=== PATIENT | male | born 1960 | race Caucasian/White ===

== ENCOUNTER 2024-08-02 21:07 | Inpatient (IN) | payer OTHER ==
[2024-08-02 21:43] VITALS: BMI 23.3
[2024-08-02] MEDS ORDERED: MAG HYDROX/AL HYDROX/SIMETH 30 ML UNIT-DOSE CUP PO PRN (22:20)
[2024-08-02] MEDS ORDERED: BISMUTH SUBSALICYLATE 524 MG/30 ML PO PRN (22:20)
[2024-08-02] MEDS ORDERED: DICYCLOMINE HCL 10 MG CAPSULE PO PRN (22:20)
[2024-08-02] MEDS ORDERED: POLYETHYLENE GLYCOL (HEALTHYLAX) 3350 17 GM PACKET PO PRN (22:20)
[2024-08-02] MEDS ORDERED: guaiFENesin 600 MG TABLET.ER (FP) PO PRN (22:20)
[2024-08-02] MEDS ORDERED: MAGNESIUM HYDROX 2400MG/30ML ORAL SUSPENSION 30 ML CUP PO PRN (22:20)
[2024-08-02] MEDS ORDERED: BENZONATATE 200 MG CAPSULE PO PRN (22:20)
[2024-08-02] MEDS ORDERED: LOPERAMIDE HCL 2 MG CAPSULE PO PRN (22:20)
[2024-08-02] MEDS ORDERED: IBUPROFEN 400 MG TABLET (FP) PO PRN (22:20)
[2024-08-02] MEDS ORDERED: NALOXONE (NARCAN) HCL 4 MG/0.1 ML SPRAY NS PRN (22:20)
[2024-08-02] MEDS ORDERED: ONDANSETRON *ODT* 4 MG TABLET SL PRN (22:20)
[2024-08-02] MEDS ORDERED: BENZOCAINE/MENTHOL (CHLORASEPTIC ) LOZENGE MM PRN (22:20)
[2024-08-03] MEDS ORDERED: amLODIPine BESYLATE 5 MG TABLET (FP) ONE (00:17)
[2024-08-03] MEDS ORDERED: diazePAM 5 MG TABLET ONE (00:17)
[2024-08-03] MEDS: amLODIPine BESYLATE 10 MG TABLET (FP) PO ONE (00:19)
[2024-08-03] MEDS: diazePAM 5 MG TABLET PO SCH (00:19)
[2024-08-03] MEDS: ASPIRIN 81 MG CHEWABLE TABLETS PO SCH (09:41)
[2024-08-03] MEDS: IBUPROFEN 600 MG TABLET (FP) PO PRN (09:41)
[2024-08-03] MEDS: metoPROLOL SUCCINATE 25 MG TAB.SR.24H (FP) PO SCH (09:42)
[2024-08-03] MEDS: PRENATAL VITAMINS W/ FOLIC ACID TABLET (FP) PO SCH (09:42)
[2024-08-03] MEDS: PANTOPRAZOLE 40 MG TABLET PO SCH (09:42)
[2024-08-03 11:18] LABS: HEMATOCRIT 42.7 % (40.1-51.0); HEMOGLOBIN 14.2 g/dL (13.7-17.5); MCHC 33.3 g/dl (32.3-36.5); MEAN CELL VOLUME 91.8 fl (79.0-92.2); MEAN PLT VOLUME 8.5 fl (9.4-12.4); PLATELET COUNT 210 x10^3/uL (163-337); RDW 11.9 % (12.2-16.4)
[2024-08-03 11:25] LABS: CHLORIDE 98 mmol/L (98-107); POTASSIUM 4.4 mmol/L (3.5-5.1); SODIUM 136 mmol/L (136-145)
[2024-08-03 11:32] LABS: ALBUMIN 3.7 g/dl (3.4-5.0); ANION GAP 12 mmol/L (4-13); BLOOD UREA NITROGEN 5.6 mg/dL (7-18); CALCIUM 9.6 mg/dL (8.5-10.1); CO2 27 mmol/L (21-32); GLUCOSE,RANDOM 193 mg/dL (74-106)
[2024-08-03 11:35] LABS: CREATININE 0.8 mg/dL (0.55-1.3); SGOT/AST 111 U/L (15-37); SGPT/ALT 92 U/L (13-61)
[2024-08-03 11:37] LABS: BILIRUBIN,TOTAL 0.6 mg/dL (0.2-1); TOT PROT 7.1 g/dl (6.4-8.2)
[2024-08-03 11:38] LABS: ALK PHOS 102 U/L (45-117)
[2024-08-03] MEDS: ACETAMINOPHEN 325 MG TABLET (FP) PO PRN (17:21)
[2024-08-03] MEDS: THIAMINE 100 MG TABLET PO SCH (22:15)
[2024-08-03] MEDS: MELATONIN 5 MG TABLETS PO SCH (22:15)
[2024-08-04] MEDS: diazePAM 5 MG TABLET PO SCH (06:18)
[2024-08-04] MEDS: NICOTINE 21 MG/24 HOURS TOPICAL PATCH TD SCH (15:49)
[2024-08-05] MEDS: diazePAM 5 MG TABLET PO SCH (05:28)
[2024-08-05] MEDS: diazePAM 5 MG TABLET PO PRN (10:46)
[2024-08-05] MEDS: METHOCARBAMOL 500 MG TABLET PO PRN (15:07)
[2024-08-05] MEDS: CLOBETASOL PROPIONATE 15 GM OINTMENT TP SCH (15:07)
[2024-08-05 20:58] VITALS: RESP 16
[2024-08-05] MEDS: amLODIPine BESYLATE 10 MG TABLET (FP) PO ONE (22:19)
[2024-08-06] MEDS: diazePAM 5 MG TABLET PO ONE (05:36)
[2024-08-06 09:15] VITALS: BP 140/70; PULSE 88; TEMP 97.7
== END 2024-08-06 12:37 | disposition other institution (70) | DRG 775 ==
LOC: YASAS 21:07 → Y6N 08-03 01:35
PROVIDERS: ADMIT Allergy & Immunology; ATTEND Allergy & Immunology
PROC: HZ2ZZZZ Detoxification Services for Substance Abuse Treatment (ICD-10-PCS; principal; 2024-08-03)
DX: F10.230 Alcohol dependence with withdrawal, uncomplicated (principal); F10.220 Alcohol dependence with intoxication, uncomplicated; F17.210 Nicotine dependence, cigarettes, uncomplicated; F10.282 Alcohol dependence with alcohol-induced sleep disorder; I10 Essential (primary) hypertension; K21.9 Gastro-esophageal reflux disease without esophagitis; M51.26 Other intervertebral disc displacement, lumbar region; M54.50 Low back pain, unspecified; G89.29 Other chronic pain
CPT/HCPCS: 36415; 80053; 80305; 80307; 85027; 86780; 87811; 93005; 93010

== ENCOUNTER 2024-08-06 12:41 | Inpatient (IN) | payer OTHER ==
[2024-08-06] MEDS ORDERED: NALOXONE HCL 0.4 MG/ML VIAL IVPUSH PRN (13:24)
[2024-08-06] MEDS ORDERED: BENZONATATE 200 MG CAPSULE PO PRN (13:24)
[2024-08-06] MEDS ORDERED: LOPERAMIDE HCL 2 MG CAPSULE PO PRN (13:24)
[2024-08-06] MEDS ORDERED: BENZOCAINE/MENTHOL (CHLORASEPTIC ) LOZENGE MM PRN (13:24)
[2024-08-06] MEDS ORDERED: POLYETHYLENE GLYCOL (HEALTHYLAX) 3350 17 GM PACKET PO PRN (13:24)
[2024-08-06] MEDS ORDERED: NALOXONE (NARCAN) HCL 4 MG/0.1 ML SPRAY NS PRN (13:24)
[2024-08-06] MEDS ORDERED: MAGNESIUM HYDROX 2400MG/30ML ORAL SUSPENSION 30 ML CUP PO PRN (13:24)
[2024-08-06] MEDS ORDERED: MAG HYDROX/AL HYDROX/SIMETH 30 ML UNIT-DOSE CUP PO PRN (13:24)
[2024-08-06] MEDS ORDERED: guaiFENesin 600 MG TABLET.ER (FP) PO PRN (13:24)
[2024-08-06] MEDS: THIAMINE 100 MG TABLET PO SCH (21:11)
[2024-08-06] MEDS: MELATONIN 5 MG TABLETS PO SCH (21:11)
[2024-08-06] MEDS: METHOCARBAMOL 500 MG TABLET PO PRN (21:13)
[2024-08-06] MEDS: CLOBETASOL PROPIONATE 15 GM OINTMENT TP SCH (21:46)
[2024-08-07] MEDS: PRENATAL VITAMINS W/ FOLIC ACID TABLET (FP) PO SCH (10:02)
[2024-08-07] MEDS: metoPROLOL SUCCINATE 25 MG TAB.SR.24H (FP) PO SCH (10:06)
[2024-08-07] MEDS: PANTOPRAZOLE 40 MG TABLET PO SCH (10:06)
[2024-08-07] MEDS: ASPIRIN COATED 81 MG TABLET.EC PO SCH (10:06)
[2024-08-09] MEDS ORDERED: NICOTINE POLACRILEX 4 MG GUM BUC PRN (15:22)
[2024-08-09] MEDS ORDERED: NICOTINE POLACRILEX 4 MG LOZENGE BC PRN (15:23)
[2024-08-09] MEDS: NICOTINE 21 MG/24 HOURS TOPICAL PATCH TD SCH (15:45)
[2024-08-10] MEDS: IBUPROFEN 600 MG TABLET (FP) PO PRN (09:38)
[2024-08-10] MEDS: ACETAMINOPHEN 325 MG TABLET (FP) PO PRN (21:02)
[2024-08-11] MEDS: hydrOXYzine PAMOATE 25 MG CAPSULE (FP) PO PRN (21:10)
[2024-08-17] MEDS: IBUPROFEN 400 MG TABLET (FP) PO PRN (21:12)
[2024-08-19] MEDS: amLODIPine BESYLATE 5 MG TABLET (FP) PO SCH (10:09)
[2024-08-19] MEDS: BACITRACIN 0.9 GM PACKET TP SCH (10:09)
[2024-08-19] MEDS: NICOTINE 21 MG/24 HOURS TOPICAL PATCH TD SCH (10:30)
[2024-08-19] MEDS: GABAPENTIN 100 MG CAPSULE PO SCH (13:34)
[2024-08-19] MEDS: FLUTICASONE PROP 0.05% 16 GM NASAL SPRAY NS PRN (21:05)
[2024-08-26 06:40] VITALS: RESP 16; TEMP 97.7
[2024-08-26 10:25] VITALS: BP 127/71; PULSE 95
== END 2024-08-26 10:00 | disposition home or self-care (01) | DRG 772 ==
LOC: YASAS 12:41 → Y5N 12:42
PROVIDERS: ADMIT Neuromusculoskeletal Medicine & OMM; ATTEND Allergy & Immunology
PROC: HZ42ZZZ Group Counseling for Substance Abuse Treatment, Cognitive-Behavioral (ICD-10-PCS; principal; 2024-08-06)
DX: F10.20 Alcohol dependence, uncomplicated (principal); F17.210 Nicotine dependence, cigarettes, uncomplicated; K21.9 Gastro-esophageal reflux disease without esophagitis; M54.50 Low back pain, unspecified; G89.29 Other chronic pain; R03.0 Elevated blood-pressure reading, without diagnosis of hypertension; I69.854 Hemiplegia and hemiparesis following other cerebrovascular disease affecting left non-dominant side; S50.812A Abrasion of left forearm, initial encounter; W22.8XXA Striking against or struck by other objects, initial encounter; Y93.89 Activity, other specified; Y92.230 Patient room in hospital as the place of occurrence of the external cause
CPT/HCPCS: 73090-TC-LT-FY; 82962